=== PATIENT | female | born 1990 | race African-American/Black ===

== ENCOUNTER 2017-06-05 01:17 | Emergency (ER) | payer MEDICARE ==
[~2017-06-05] VITALS: Ht 157.5 cm; Wt 72.6 kg
[2017-06-05] MEDS ORDERED: TETANUS/DIPHTHERIA TOX ADULT 0.5 ML SYR ONE (02:19)
[2017-06-05] MEDS ORDERED: TETANUS/DIPHTHERIA TOX ADULT 0.5 ML SYR IM ONE (02:30)
[2017-06-05] MEDS ORDERED: ONDANSETRON HCL INJ 2 MG/ML VIAL IV STA (03:11)
[2017-06-05] MEDS ORDERED: MORPHINE SULFATE 2 MG/ML SYR IV STA (03:11)
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
[2017-06-05 04:22] VITALS: BP 122/76
== END 2017-06-05 04:26 | disposition other institution (70) ==
LOC: ER 01:17
DX: S01.111A Laceration without foreign body of right eyelid and periocular area, initial encounter (principal); S01.81XA Laceration without foreign body of other part of head, initial encounter; Y04.8XXA Assault by other bodily force, initial encounter; Y92.008 Other place in unspecified non-institutional (private) residence as the place of occurrence of the external cause; Z23 Encounter for immunization
CPT/HCPCS: 70450; 72125; 90471; 90714; 99284; J2270; J2405